=== PATIENT | male | born 1945 | race African-American/Black ===

== ENCOUNTER 2018-10-03 18:17 | Emergency (ER) | payer OTHER, BC ==
[~2018-10-03] VITALS: Ht 190.5 cm; Wt 117.9 kg
[~2018-10-03 18:17] MED LIST: ASPIRIN EC81 M1 PO; AVANDAMET 2 MG1 EACH PO; BENICAR20 MG PO; CIPRO500 MG PO; CIPROFLOXACIN500 M1 PO; FLOMAX PO; JANUMET 50-1,01 EACH PO; KEFLEX500 MG PO; MYRBETRIQ25 MG PO; PRILOSEC40 MG PO
[2018-10-03 21:32] VITALS: BP 122/58
== END 2018-10-03 21:33 | disposition home or self-care (01) ==
LOC: ER 18:17
DX: S61.216A Laceration without foreign body of right little finger without damage to nail, initial encounter (principal); E11.9 Type 2 diabetes mellitus without complications; E78.5 Hyperlipidemia, unspecified; I10 Essential (primary) hypertension; Z87.891 Personal history of nicotine dependence; W49.02XA String or thread causing external constriction, initial encounter; Y92.89 Other specified places as the place of occurrence of the external cause; Y93.89 Activity, other specified; Y99.8 Other external cause status

== ENCOUNTER 2019-05-17 16:26 | Inpatient (IN) | payer OTHER, BC ==
[~2019-05-17] VITALS: Ht 190.5 cm; Wt 122.9 kg
--- NOTE | ~2019-05-17 | HC ---
[facility] [place] [address] CONSULTATION Name: YAHAIRAJASON Humaira Room #: 219-P ADM IN M.R.#: [id number] Admission: 05/17/19 Attend Phys: Sydni Calero MD Discharge: Date of : 41 Report #: [id number] THIS REPORT FOR: //name// CC: Kyle Calero HISTORY OF PRESENT ILLNESS: This patient is seen in consultation regarding recently discovered gastric adenocarcinoma. He is actually known to me as I have previously treated his for 3 separate primary adenocarcinomas in the past before her 3 years ago. He was returning from a weekend trip to [place] and had a large black stool at 4:00 a.m. He suddenly subsequently felt ill and presented to the [facility] Emergency Room, was found to be profoundly anemic. A subsequent endoscopy shows a gastric mass, which has been biopsied and CAT scanning shows apparent liver and adrenal metastases. PAST MEDICAL HISTORY: Significant for medically managed hypertension. He is obese. Peptic ulcer disease in the past with previous endoscopies, approximately 3-[address] Marc Alvarado at [facility]. He has hypertension and hyperlipidemia along with benign prostatic hypertrophy. He has had previous foot surgery. FAMILY HISTORY: Noncontributory. SOCIAL HISTORY: He is retired from the post office. He is nonsmoker, nondrinker. He denies illicit drug use. ALLERGIES: None known. MEDICATIONS: Listed in the MFR. REVIEW OF SYSTEMS: As in the history of present illness with no apparent earlier blood loss. PHYSICAL EXAMINATION: GENERAL: Shows an alert black male, appears stated age. HEENT: Normocephalic. NECK: Supple. CHEST: Clear. CARDIOVASCULAR: Normal S1, S2. ABDOMEN: Soft. EXTREMITIES: Show no clubbing, cyanosis, edema. NEUROLOGIC: No focal localized signs. PSYCHIATRIC: Not agitated or confused. LYMPHATICS: Showed no palpable supraclavicular adenopathy. [facility] [address] [place] [address] CONSULTATION Name: JASON SYED Room #: 219-P [facility] IN ..#: [id number] Admission: 05/17/19 Attend Phys: Sydni Calero MD Discharge: Date of : 41 Report #: [id number] LABORATORY DATA: Laboratory studies interestingly show no elevated liver functions. He was anemic as noted along with a low albumin. 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 PLAN: We have discussed the usual treatment is chemotherapy and he is familiar with a Port-A-Cath, as his had one previously. I have suggested we go ahead and have this placed. His treatment usually entails infusional 5-FU. I need to await the results of his HER2 testing regarding the use of Herceptin in conjunction with the planned chemotherapy. He is to continue receiving transfusions at present, and hopefully, his bleeding will stop and allowing him to be discharged from the hospital. We have discussed obtaining a PET scan for further staging and treatment as an outpatient. He does not appear at this time to qualify for investigational clinical trial, but again HER2 is pending. Thanks for allowing me to see him with you in consultation and asking me to participate in his care. By: [id number] Samanta Ford MD /nt
--- NOTE | ~2019-05-17 | O ---
[facility] [place] [address] [address] OPERATIVE REPORT Name: JASON SYED Room #: 219-P [facility] IN M.R.#: [id number] Admission: 05/17/19 Attend Phys: Sydni Calero MD Discharge: Date of : 41 Report #: [id number] THIS REPORT FOR: //name// CC: Kyle Calero DATE OF SERVICE: 05/22/2019 PREOPERATIVE DIAGNOSIS: Stomach cancer. POSTOPERATIVE DIAGNOSIS: Stomach cancer. OPERATIVE PROCEDURE DONE: Right internal jugular Port-A-Cath placement. OPERATING SURGEON: Feliz Ferrer MD INDICATIONS FOR THE PROCEDURE: The patient is a 74-year-old male who has been recently diagnosed with a "stomach cancer. The patient is being considered for chemotherapy. The patient was advised for Port-A-Cath placement. DESCRIPTION OF PROCEDURE: After explaining to the patient in detail and informed consent was obtained, the patient was identified in the preoperative holding area. The patient was transferred to the operating room and was placed in supine position. Sequential compression devices were placed for DVT prophylaxis. Preoperative antibiotics were given. After induction of anesthesia, the right upper chest and neck was prepped and draped in a sterile fashion. The internal jugular vein was accessed using Seldinger technique. The guidewire was introduced, the position of which was confirmed on fluoroscopy. Thereafter, a subcutaneous pocket was created in the right upper chest through a 3 cm incision. The introducer sheath was inserted over the guidewire and the inner cannula and guidewire was introduced and the catheter was inserted. Catheter was then tunneled into the subcutaneous pocket. The catheter was then pulled back under fluoroscopic guidance for the tip to lie in the superior vena cava. The catheter was then divided and the port was attached and the hub placed. The port was then anchored in position with three interrupted 2-0 Prolene sutures. The port was then flushed with heparinized saline. I was able to easily aspirate blood prior to this. The incision was then closed in layers using 2-0 Vicryl for the subcutaneous tissue. Skin was closed with 4-0 Monocryl for all the incisions including the neck incision. The patient was awoken from anesthesia and was transferred to the recovery room in stable condition. ESTIMATED BLOOD LOSS: Minimal. CONDITION OF THE PATIENT: Stable. FLUIDS GIVEN: Per anesthesia notes. [address] [address] OPERATIVE REPORT Name: JASON SYED Room #: 219-P [facility] IN ..#: [id number] Admission: 05/17/19 Attend Phys: Sydni Calero MD Discharge: Date of : 41 Report #: [id number] SPECIMEN SENT: None. COMPLICATIONS: None. ANESTHESIA: General anesthesia. By: [id number] Feliz Ferrer MD /nt
[2019-05-17 16:27] VITALS: BP 141/75
[2019-05-17 17:37] LABS: ABSOLUTE NEUTROPHILS 13.5 thou/uL (1.4-8.2); BASOPHILS 0.3 % (0.0-2.0); EOSINOPHILS 0.2 % (0.0-3.0); HEMATOCRIT 30.8 % (42.0-52.0); HEMOGLOBIN 10.1 gm/dL (14.0-18.0); LYMPHOCYTES 14.1 % (24.0-44.0); MCH 30.1 pg (26.0-34.0); MCHC 32.8 g/dL (28.0-37.0); MCV 91.6 fL (80.0-100.0); MONOCYTES 3.9 % (1.0-8.0); PLATELET COUNT 224 thou/uL (150-400); POLYS 81.5 % (36.0-66.0); RBC 3.37 mil/uL (4.50-6.00); RDW 13.6 % (10.5-14.5); WBC 16.6 thou/uL (4.0-11.0)
[2019-05-17 18:04] LABS: APTT 17.8 Seconds (24.5-32.8); PROTIME 10.7 Seconds (9.3-11.4)
[2019-05-17 18:07] LABS: BUN 22 mg/dL (7-18); CHLORIDE 123 mmol/L (98-107); CREATININE 0.5 mg/dL (0.7-1.3); GLUCOSE 127 mg/dL (74-106); SODIUM 144 mmol/L (136-145); TROPONIN-I <0.06 ng/mL (<0.06)
[2019-05-17 18:08] LABS: ANION GAP 12 mmol/L (7-16)
[2019-05-17 18:11] LABS: CALCIUM < 5.0 mg/dL (8.5-10.1); CO2 9 mmol/L (21-32); POTASSIUM 2.7 mmol/L (3.5-5.1)
[2019-05-17 18:34] LABS: ALBUMIN 1.1 g/dL (3.4-5.0); DIRECT BILIRUBIN < 0.1 mg/dL (<0.1-0.3); SGOT 29 U/L (15-37); SGPT < 6 U/L (30-65); TOTAL BILIRUBIN 0.3 mg/dL (<0.1-1.0)
[2019-05-17 18:41] VITALS: BP 133/84
[2019-05-17 18:41] LABS: MAGNESIUM 0.4 mg/dL (1.8-2.4); TOTAL PROTEIN 3.1 g/dL (6.4-8.2)
[2019-05-17 20:03] VITALS: BP 137/75
[2019-05-17] MEDS ORDERED: SIMVASTATIN10 MG PO (20:32)
[2019-05-17] MEDS ORDERED: SILDENAFIL20 MG PO (20:33)
[2019-05-17] MEDS ORDERED: JANUMET 50-1,01 EACH PO (20:34)
[2019-05-17] MEDS ORDERED: TOLTERODINE TART4 MG PO (20:34)
[2019-05-17] MEDS ORDERED: ALFUZOSIN HCL10 MG PO (20:35)
[2019-05-17 21:15] VITALS: BP 120/76
[2019-05-17 22:00] VITALS: BP 130/73
[2019-05-17 23:00] VITALS: BP 119/65
[2019-05-18] VITALS (22 sets, daily range): BP systolic 113–138; BP diastolic 58–73
[2019-05-18 00:49] LABS: MAGNESIUM 2.2 mg/dL (1.8-2.4)
[2019-05-18 00:50] LABS: POTASSIUM 5.6 mmol/L (3.5-5.1)
[2019-05-18 04:36] LABS: HEMATOCRIT 24.7 % (42.0-52.0); HEMOGLOBIN 8.1 gm/dL (14.0-18.0); MCH 29.8 pg (26.0-34.0); MCV 90.3 fL (80.0-100.0); RBC 2.73 mil/uL (4.50-6.00); RDW 13.8 % (10.5-14.5); WBC 13.5 thou/uL (4.0-11.0)
[2019-05-18 04:46] LABS: ALBUMIN 2.7 g/dL (3.4-5.0); CALCIUM 8.7 mg/dL (8.5-10.1); CREATININE 1.2 mg/dL (0.7-1.3); POTASSIUM 4.7 mmol/L (3.5-5.1); TOTAL BILIRUBIN 0.3 mg/dL (<0.1-1.0); TOTAL PROTEIN 6.2 g/dL (6.4-8.2)
--- NOTE | 2019-05-18 05:30 | NUR ---
PT ARRIVED IN ICU FROM ER AT 2049 YESTERDAY. PT A&O, DENIES PAIN AND NAUSEA. PT HAD NO COMPLAINTS. POTASSIUM AND MAG REPLACED AND NOW WITHIN NORMAL RANGE. PT HAD ONE LARGE LOOSE MAROON STOOL SINCE ARRIVAL TO THE ICU. PT'S HGB DROPPED SOME. TRANSFUSION NOT INDICATED AT THIS TIME. PT TO PROBABLY HAVE EGD TODAY. WILL CONTINUE TO MONITOR.
--- NOTE | 2019-05-18 08:15 | EKG ---
[address] [place] [address] ELECTROCARDIOGRAM REPORT Name: JASON SYED Room #: 240-P ADM IN M.R.#: [id number] Admission: 05/17/19 Attend Phys: Sydni Calero MD Discharge: Date of : 41 Report #: [id number] THIS REPORT FOR: //name// [facility] ED Test Date: 2019-05-17 Test Time: 17:20:08 Pat Name: JASON SYED Department: Room: 240 Gender: M Chart Clerk: Torie FISHER RN : 1945 Requested By: Jason Beverly Order Number: [id number] MD: Som Morales Measurements Intervals [place] Rate: 101 P: 59 [place]: 154 QRS: -5 QRSD: 89 T: 75 QT: 328 QTc: 426 Interpretive Statements Sinus tachycardia Poor R wave progression Compared to ECG 11/11/2014 08:29:38 Atrial premature complex(es) no longer present Electronically Signed On 05-18-2019 8:15:31 CDT by Som Morales [email or web address] <ELECTRONICALLY SIGNED> By: Som Morales MD, [facility] 05/18/19814 1720 1720 Som Morales MD, [facility] /EPI
--- NOTE | 2019-05-18 10:54 | NUR ---
INITIAL ASSESSMENT: Pt evaluated for d/c planning needs. Reviewed chart and spoke with nurse, pt and spouse. Pt is alert and oriented. Pt lives in house with spouse and was independent with ADL's prior to admission to the hospital. Pt has cane at home, but does not normally use. Pt has not had home health in the past. Pt plans on returning home on d/c from hospital. Will remain available to assist as needed.
--- NOTE | 2019-05-18 11:04 | NUR ---
PICC PLACEMENT CONTINUES TO BE ON HOLD. THIS PATIENT HAS APPROPRIATE PERIPHERAL ACCESS AND LARGE PERIPHERAL VEINS. 2 #20G PIV'S WERE PLACED LAST PM BY THE VASCULAR ACCESS NURSE. SPOKE TO DAVE LUKE, IF THE PATIENTS CONDITION CHANGES AND THERE IS A NEED FOR ADDITIONAL ACCESS SHE WILL CALL
--- NOTE | 2019-05-18 16:50 | NUR ---
PT IS GONE TODAY FOR EGD WITH RESULTS DISCUSSED FROM GI DOCTORY. FAMILY AT BEDSIDE AWARE AWAITING BIOPSY RESULTS. PT HAD LOOSE BLACK STOOL THIS AM PRIOR TO EGD. VOIDS PER URINAL . NO NAUSEA OR PAIN NOTED . ABDOMEN IS ROUND BOWEL SOUNDS HYPOACTIVE X4. TAKING CLEAR LIQUID DIET. CALL LIGHT WITHIN REACH IF NEEDS ASSISTANCE. VS STABLE. NO ISSUES OR CONCERNS AT THIS TIME
[2019-05-19] VITALS (16 sets, daily range): BP systolic 109–156; BP diastolic 59–79
[2019-05-19 05:35] LABS: HEMATOCRIT 20.4 % (42.0-52.0); MCH 30.7 pg (26.0-34.0); MCHC 34.2 g/dL (28.0-37.0); MCV 89.7 fL (80.0-100.0); RBC 2.28 mil/uL (4.50-6.00); RDW 13.7 % (10.5-14.5); WBC 9.2 thou/uL (4.0-11.0)
[2019-05-19 05:44] LABS: CALCIUM 9.1 mg/dL (8.5-10.1); CREATININE 1.2 mg/dL (0.7-1.3); POTASSIUM 4.3 mmol/L (3.5-5.1)
--- NOTE | 2019-05-19 06:30 | NUR ---
PT A&O, DENIES PAIN. NO STOOLS OVERNIGHT, BUT HGB DID DROP SOME FROM YESTERDAY MORNING. ELECTROLYTES WITHIN NORMAL RANGE THIS MORNING. PT REMAINS ON PROTONIX GTT. PT HAS NO COMPLAINTS AND DOES NOT APPEAR TO BE IN ANY DISTRESS. PT IS PROGRESSING TOWARDS GOALS. WILL CONTINUE TO MONITOR.
--- NOTE | 2019-05-19 11:00 | NUR ---
PT TRANSFERRED TO ROOM 219. REPORT CALLED TO TI WHIPPLE.
--- NOTE | 2019-05-19 11:10 | NUR ---
ASSUMED CARE AT 0700. PT A&OX4. PT ON ROOM AIR. PT VOIDS PER URINAL. PT GETS UP TO BEDSIDE CHAIR WITH ONE ASSIST. FALL PRECAUTIONS IN PLACE WITH USE OF BEDALARM AND CHAIR ALARM. PT HAS NOT HAD BM THIS SHIFT AND NIGHT NURSE STATES PT DID NOT HAVE BM ON SECURITY ASSISTANT. NO SIGNS OF ACTIVE BLEEDING AT THIS TIME.
--- NOTE | 2019-05-19 16:06 | PATH ---
[facility] [place] [address] PATHOLOGY RPT PROCEDURE Name: JASON SYED Humaira Room #: 219-P [facility] IN M.R.#: [id number] Admission: 05/17/19 Date of : 41 Discharge: Report #: [id number] Path Case #: [id number] [facility] Accession Number: [id number] . 01 Material submitted: . PART A: stomach - GASTRIC ULCER MASS PART B: stomach - ANTRUM . 01 Clinician provided ICD-10: K92.2 . 01 Clinical history: . Pre-OP DX: Melena Post-OP DX: Erosive gastritis, gastric mass Gastrointestinal hemorrhage, unspecified . 02 Diagnosis: A. Gastric mass, endoscopic biopsy: - MODERATE TO POORLY DIFFERENTIATED ADENOCARCINOMA. - Negative for Helicobacter pylori (properly controlled immunohistochemical stain performed). . B. Gastric mucosa, antrum rule out H. pylori, endoscopic biopsy: - Mild chronic active gastritis with features of moderate reactive gastropathy and abundant intestinal metaplasia. - Negative for atrophy. - Negative for Helicobacter pylori (properly controlled immunohistochemical stain performed). LB/05/19/2019 . 02 Comment: Part A was co-reviewed with Dr. Yoni Weston who concurs with my diagnosis. Findings of this case are conveyed to Dr. Seth Clay at approximately 10:00 a.m. on 05/19/19. (IUV/db; 05/19/2019) . 02 Electronically signed: . Tg Troy MD, Pathologist NPI- [id number] . 01 Gross description: . A. Received in formalin labeled "Jason Syed BX gastric mass," are 6 segments of paulino soft tissue measuring 1.1 x 0.9 x 0.2 cm in aggregate dimensions and ranging from 0.2 to 0.4 cm in maximum dimension. The specimen is submitted entirely in cassette A1. . B. Received in formalin labeled "Jason Syed BX antrum, [place] [address] PATHOLOGY RPT PROCEDURE Name: YAHAIRAJASON Humaira Room #: 219-P ADM IN M.R.#: [id number] Admission: 05/17/19 Date of : 41 Discharge: Report #: [id number] Path Case #: [id number] pylori," are 2 segments of paulino soft tissue measuring 0.7 x 0.2 x 0.2 cm in aggregate dimensions and ranging from 0.3 to 0.4 cm in maximum dimension. The specimen is submitted entirely in cassette B1. (TSD; 05/18/2019) TOB/TOB . 02 Pathologist provided ICD-10: C16.9, K29.50, K31.9 . 02 CPT . 863767, 485929, J50475, Q61160 Specimen Comment: A courtesy copy of this report has been sent to Specimen Comment: [phone], , . Specimen Comment: Report sent to ,DR LEOS / DR FRANCISCO Performed at: [address] [facility], [place] [id number] MD Praneeth Billingsley MD Phone: [phone] Performed at: [address] [id number] MD Tg Troy MD Phone: [phone]
--- NOTE | 2019-05-19 17:39 | NUR ---
PT TRANSFERED FROM ICU. ALERT AND ORIENTED. DENIED HAVING PAIN OR DISCOMFORT. VSS. UP IN THE CHAIR THIS SHIFT. NO CONCERNS AT THIS TIME. WILL CONTINUE TO MONITOR.
[2019-05-19 23:10] LABS: URINE BILIRUBIN NEGATIVE (Negative); URINE BLOOD 2+ (Negative); URINE CLARITY SL CLOUDY; URINE COLOR YELLOW; URINE GLUCOSE-RANDOM* NEGATIVE (Negative); URINE KETONES NEGATIVE (Negative); URINE NITRITE-REFLEX NEGATIVE (Negative); URINE PROTEIN (DIPSTICK) NEGATIVE (Negative); URINE UROBILINOGEN 0.2 E.U./dl (0.2-1.0)
[2019-05-19 23:14] LABS: URINE LEUKOCYTES-REFLEX 1+ (Negative)
[2019-05-19 23:23] LABS: SQUAMOUS 0-3 Few /LPF (0-3)
[2019-05-19 23:24] LABS: BACTERIA-REFLEX 1-9 Few /HPF (None Seen); CASTS None Seen /LPF (None Seen); CRYSTALS None Seen /LPF (None Seen); MUCUS 0-3 Light strn/LPF (None Seen); URINE WBC-REFLEX 6-15 Few /HPF (0-5)
[2019-05-20 03:12] VITALS: BP 140/71
--- NOTE | 2019-05-20 03:34 | NUR ---
ASSESSMENT DOCUMENTED.PT BEEN RESTING IN NO ACUTE DISTRESS.A/OX4.VSS.UP WITH SBA,GAIT VERY UNSTEADY AND SHAKY.PT COMPLIANT WITH CALLING FOR ASSISTANCE.CONTINUES TO EDUCATE ON FALL PRECAUTIONS/SAFETY.C/O PAIN UPON URINATION AND BURNING SENSATION.BOILER HOUSE MECHANIC NOTIFIED,ORDERS GIVEN TO DO URINALYSIS WITH CULTURE INDICATED.UA SENT TO LAB.POC IS TO CONTINU TO TX WITH CURRENT TREATMENT.
--- NOTE | 2019-05-20 06:59 | NUR ---
CRITICAL LABS CALLED IN HGB OF 6.4,ORDERS TO TRANSFUSE 1 UNIT OF PRBC GIVEN BY COIN MACHINE SERVICER REPAIRER,PT NOTIFIED OF N/OS.REPORTED OF HAVING TINY BLOOD X1 THIS SHIFT IN HIS URINE.UA SENT TO LAB.
[2019-05-20 09:24] VITALS: BP 134/63; BP 149/57
[2019-05-20 10:13] VITALS: BP 152/67
[2019-05-20 13:56] VITALS: BP 152/73
[2019-05-20 15:24] LABS: HEMATOCRIT 26.1 % (42.0-52.0); HEMOGLOBIN 8.8 gm/dL (14.0-18.0)
--- NOTE | 2019-05-20 16:12 | NUR ---
ASSUMED CARE OF PT AT SHIFT CHANGE. ASSESSMENTS CHARTED. MEDS GIVEN PER DEC. PT ALERT AND ORIENTED. VSS. HGB THIS AM 6.4, TRANSFUSED 1 UNIT. HGB THIS AFTERNOON 8.8. PER NOTES, PT PLAN TO BE DC'D HOME TOMORROW WITH POSSIBLE PORT. PT C/O CONSTIPATION- PHYS NOTIFIED, ORDERS RECEIVED. DENIES PAIN. O2 SATS WNL ON ROOM AIR. FAMILY VISITED PT THIS SHIFT. DENIES NEEDS AT THIS TIME. WILL CONT TO MONITOR AND FOLLOW POC.
[2019-05-20 18:49] VITALS: BP 140/83
[2019-05-20 20:15] VITALS: BP 153/81
[2019-05-21] VITALS (7 sets, daily range): BP systolic 12–157; BP diastolic 52–86
--- NOTE | 2019-05-21 05:53 | NUR ---
PATIENTS CARES WERE ASSUMED AT SHIFT CHANGE. PATIENT WAS ASSESSED AND MEDS WERE PASSED. HOURLY ROUNDING WAS DONE. THE BED IS IN A LOW AND LOCKED POSITION.
[2019-05-21 16:00] LABS: HEMATOCRIT 25.5 % (42.0-52.0); HEMOGLOBIN 8.7 gm/dL (14.0-18.0)
--- NOTE | 2019-05-21 17:10 | NUR ---
Case discussed with the care team. Pt getting scoped again today for continued blood loss. Noah cath placement ordered. Dc timeframe is uncertain. Dc plan at this time is to outpt f/u with Onc and initiation of chemo tx. Will ask for therapy eval. Will follow.
--- NOTE | 2019-05-21 18:01 | NUR ---
ASSESSMENT CHARTED - MEDS PER DEC - FLUIDS D/C'S AND PATIENT STARTED ON PROTONIX DRIP THIS SHIFT. TAKEN TO GI LAB FOR EGD - NO ACTIVE BLEEDING NOTED - PATIENT HEAM THIS AM WAS 7.5 DOWN FROM 8.8 YESTERDAY - RECHECKED THIS AFTERNOON AND WAS 8.7. SURGERY CONSULT FOR PORTACATH PLACEMENT- DR NOTIFIED AND WILL SEE PATIENT. PT KOJO DIET AND FLUIDS. NO CO'S OF PAIN - DID CO'S OF SLIGHT NAUSEA AFTER PROCEDURE - GIVEN 7 -UP WITH RELIEF. FAMILY AT THE BEDSIDE - NO CO'S AT THE PRESENT TIME.
[2019-05-21] MEDS ORDERED: XALATAN2.5 ML OPHTHALMIC (21:01)
[2019-05-21] MEDS ORDERED: FLONASE 0.05%50 MCG NASAL (21:03)
[2019-05-22 03:56] VITALS: BP 150/69
[2019-05-22 05:42] LABS: HEMATOCRIT 22.4 % (42.0-52.0); HEMOGLOBIN 7.7 gm/dL (14.0-18.0); MCH 31.5 pg (26.0-34.0); MCHC 34.2 g/dL (28.0-37.0); MCV 92.1 fL (80.0-100.0); RBC 2.43 mil/uL (4.50-6.00); RDW 14.5 % (10.5-14.5); WBC 8.8 thou/uL (4.0-11.0)
[2019-05-22 05:48] LABS: CREATININE 1.1 mg/dL (0.7-1.3); POTASSIUM 3.8 mmol/L (3.5-5.1)
[2019-05-22 07:22] VITALS: BP 153/65
--- NOTE | 2019-05-22 07:50 | NUR ---
RECEIVED PT'S CARE AT 1940; PT. ON BED; AOX4; DURING ASSESSMENT NO C/O PAIN; EDUCATED ABOUT NPO AFTER MIDNIGHT; ST. UNDERSTANDING; EDUCATED ABOUT FALL PREVENTION; ST. UNDERSTANDING; IV PULLED OUT; REPLACED; ABLE TO REST THROUGH THE NIGHT; ASSESSMENT CHARGED; FOLLOWING POC; PASSED ON REPORT.
--- NOTE | 2019-05-22 07:54 | P ---
[facility] [place] [address] PROCEDURE REPORT Name: JASON SYED Room #: 219-P [facility] IN M.R.#: [id number] Admission: 05/17/19 Attend Phys: Sydni Calero MD Discharge: Date of : 41 Report #: [id number] THIS REPORT FOR: //name// CC: KYLE Calero MD DATE OF SERVICE: 05/21/2019 PROCEDURE: EGD with epinephrine injection of bleeding gastric mass and by cautery of bleeding gastric mass. PATIENT OF: Dr. Kyle Saldana and Dr. Sydni Calero. INDICATION FOR PROCEDURE: The patient has been passing melena. He drops his hemoglobin. He has a known gastric mass with the potential for bleeding because of its increased vascularity. EGD is being performed to try to localize the bleeding site and to treat it. Informed consent for this procedure was obtained prior to the administration of any medication. The risks of the procedure include, but are not limited to the following, bleeding, perforation, infection, complications of sedation and the possibility I could miss something. The patient is indicated his consent by signing. Propofol was slowly titrated before and during this procedure for patient comfort by the anesthesia service. The Olympus upper videoscope was introduced through the upper esophageal sphincter and advanced under direct visualization to the second portion of the duodenum. Findings are noted on withdrawal of the scope. The second portion of the duodenum and the duodenal bulb appeared normal. Pylorus, normal mucosa. Antrum, normal mucosa. Body, on the greater curvature of the body of the stomach is a moderately sized irregular appearing friable gastric mass that has been previously biopsied and found to contain adenocarcinoma of the stomach. There are several points of oozing red blood noted throughout this mass and there was an ulceration in the center of it. I bicapped all of these oozing areas and ablated them in one area in particular was difficult to completely ablate, slowly injected with 2 mL of epinephrine and then was able to cauterize it successfully and no bleeding was seen. I washed the mass with a water jet and could not induce any significant bleeding. The scope was then withdrawn into the esophagus. There was some mild erythema at the Z line, but the esophageal mucosa appeared fairly normal throughout at this time. The scope was withdrawn. The patient went to the recovery area in stable condition. He tolerated the procedure well. [address] [address] PROCEDURE REPORT Name: JASON SYED Humaira Room #: 219-P [facility] IN .R.#: [id number] Admission: 05/17/19 Attend Phys: Sydni Calero MD Discharge: Date of : 41 Report #: [id number] IMPRESSION: Oozing gastric mass that is a known adenocarcinoma of the stomach, injected and cauterized as above. Recommendations are for him to continue on the proton pump inhibitors. We will monitor his H and H closely and start on a soft diet. Thank you very much once again for allowing me to participate in his care, Dr. Calero and Dr. Rodriguez. <ELECTRONICALLY SIGNED> By: Ciera Li DO 05/22/19 0754 [id number] Ciera Li DO /nt
[2019-05-22 11:32] VITALS: BP 173/79
--- NOTE | 2019-05-22 16:40 | NUR ---
ASSESSMENT CHARTED - PT HAS BEEN NPO FOR SURGERY THIS SHIFT - MEDS HELD AND WILL BE GIVEN UPON RETURN. PT UP TO THE CHAIR THIS AM - NO CO'S OF PAIN OR NASUEA. TO SURGERY THIS AM FOR PORT A CATH PLACEMENT. HAS NOT RETURN OF YET FROM SURGERY. WILL CONTINUE TO MONITOR UPON RETURN.
--- NOTE | 2019-05-22 17:52 | NUR ---
Possible dc home this weekend per the care team. Noah cath placed today. No cm interventions indicated. Outpt onc follow anticipated.
--- NOTE | 2019-05-23 04:35 | NUR ---
ASSUMED CARE FROM DAY SHIFT PT PT VISITING WITH FAMILY , DENIES PAIN OR BLOODY STOOLS , DISCUSSED PLAN OF CARE AND AGREEABLE, IV PROTONIX GTT INFUSING WELL COMMERCIAL TRUCK DRIVER SHOWS NSR RESTED WELL THROUGHOUT HOURLY ROUNDS
[2019-05-23 05:30] VITALS: BP 149/69
[2019-05-23 07:23] VITALS: BP 134/63
[2019-05-23 12:58] VITALS: BP 146/65
[2019-05-23 13:55] VITALS: BP 146/65
[2019-05-23 14:03] VITALS: BP 146/65
--- NOTE | 2019-05-23 15:18 | NUR ---
AAOX4. CALM, PLEASANT. ANTICIPATING DISCHARGE TODAY. DR. QUISPE DISCHARGES TO HOME WITH SELF CARE. DISCHARGE INSTRUCTIONS GIVEN. HE IS TO FOLLOW UP WITH ONCOLOGY. TELE AND SALINE LOCK DISCONTINUED. FROM UNIT BY WC, ACCOMPANIED BY DATA PROCESSING MANAGER.
== END 2019-05-23 15:21 | disposition home or self-care (01) | DRG 981 ==
LOC: ER 16:26 → EROBS 18:25 → ICU 18:25 → 2N 05-19 11:27
PROVIDERS: Emergency Medicine; Internal Medicine; Internal Medicine Gastroenterology; Nurse Practitioner Acute Care; Nurse Practitioner Family; ADMIT Internal Medicine
PROC: 30233N1 Transfusion of Nonautologous Red Blood Cells into Peripheral Vein, Percutaneous Approach (ICD-10-PCS; principal; 2019-05-20)
PROC: 0W3P8ZZ Control Bleeding in Gastrointestinal Tract, Via Natural or Artificial Opening Endoscopic (ICD-10-PCS; 2019-05-21)
PROC: B5181ZA Fluoroscopy of Superior Vena Cava using Low Osmolar Contrast, Guidance (ICD-10-PCS; 2019-05-22)
PROC: 02HV33Z Insertion of Infusion Device into Superior Vena Cava, Percutaneous Approach (ICD-10-PCS; 2019-05-22)
PROC: 0JH60WZ Insertion of Totally Implantable Vascular Access Device into Chest Subcutaneous Tissue and Fascia, Open Approach (ICD-10-PCS; 2019-05-22)
DX: C16.9 Malignant neoplasm of stomach, unspecified (principal); E43 Unspecified severe protein-calorie malnutrition; C78.7 Secondary malignant neoplasm of liver and intrahepatic bile duct; C79.70 Secondary malignant neoplasm of unspecified adrenal gland; D62 Acute posthemorrhagic anemia; E87.6 Hypokalemia; E83.51 Hypocalcemia; K59.00 Constipation, unspecified; I10 Essential (primary) hypertension; E11.9 Type 2 diabetes mellitus without complications; E78.5 Hyperlipidemia, unspecified; N40.0 Benign prostatic hyperplasia without lower urinary tract symptoms; Z87.891 Personal history of nicotine dependence; Z87.11 Personal history of peptic ulcer disease; Z79.82 Long term (current) use of aspirin; Z79.899 Other long term (current) drug therapy
CPT/HCPCS: 10078; 10081; 50010; 50101; 50386; 50403; 51938; 54118; 56524; 56525; 56526; 62110; 62850; 62900; 70005